=== PATIENT | male | born 1975 | race Caucasian/White ===

== ENCOUNTER 2018-09-27 07:55 | Day surgery (SDC) | payer OTHER ==
[2018-09-21 10:08] VITALS: BMI 26.6
[2018-09-27 10:20] VITALS: TEMP 98
[2018-09-27 10:37] VITALS: BP 124/81; PULSE 52
--- NOTE | 2018-09-28 17:22 | PATH ---
Surgical Pathology Report Patient Name: FÉLIX MONTOYA [facility]. Rec. #: [id number] /Age/Gender: 1975 (Age: 43) / M Account: [id number] Location: [facility] Taken: 09/27/2018 Received: 09/27/2018 Reported: 09/28/2018 Physicians: Simone Friedman M.D. Specimen(s) Received PROXIMAL SIGMOID POLYP Clinical History Screening, family history of colon cancer Postoperative diagnosis: Colon polyp Final Diagnosis PROXIMAL SIGMOID POLYP, POLYPECTOMY: TUBULAR ADENOMA. Electronically Signed Lizz Mackay M.D. Gross Description Received in formalin, labeled "proximal sigmoid polyp" is a davis, irregular portion of soft tissue measuring 0.5 cm. in greatest dimension. The specimen is submitted in toto in one cassette. 09/27/201809/27/2018
== END 2018-09-27 10:35 | disposition home or self-care (01) ==
LOC: FASU-ENDO 07:55
PROVIDERS: ATTEND Internal Medicine Gastroenterology
PROC: 0DBN8ZX Excision of Sigmoid Colon, Via Natural or Artificial Opening Endoscopic, Diagnostic (ICD-10-PCS; principal; 2018-09-27 09:15)
DX: Z12.11 Encounter for screening for malignant neoplasm of colon (principal); D12.5 Benign neoplasm of sigmoid colon; Z80.0 Family history of malignant neoplasm of digestive organs
CPT/HCPCS: 88305-TC

== ENCOUNTER 2022-01-13 06:56 | Day surgery (SDC) | payer OTHER ==
[2022-01-10 15:12] VITALS: BMI 27.3
[2022-01-13] MEDS ORDERED: PROPOFOL 20 ML ONE ×4 (07:15)
[2022-01-13] MEDS ORDERED: LIDOCAINE HCL/PF 2% SDV 5ML VIAL ONE (07:15)
[2022-01-13 09:11] VITALS: BP 111/74; PULSE 76; TEMP 97.6
== END 2022-01-13 09:25 | disposition home or self-care (01) ==
LOC: FASU-ENDO 06:56
PROVIDERS: ATTEND Internal Medicine Gastroenterology
PROC: 0DJD8ZZ Inspection of Lower Intestinal Tract, Via Natural or Artificial Opening Endoscopic (ICD-10-PCS; principal; 2022-01-13 08:14)
DX: Z12.11 Encounter for screening for malignant neoplasm of colon (principal); Z86.010 Personal history of colon polyps; Z80.0 Family history of malignant neoplasm of digestive organs; K57.30 Diverticulosis of large intestine without perforation or abscess without bleeding